=== PATIENT | female | born 1990 ===

== ENCOUNTER 2018-07-22 19:15 | Emergency (ER) | payer OTHER ==
[~2018-07-22] VITALS: Ht 162.6 cm; Wt 48.1 kg
== END 2018-07-22 21:21 | disposition home or self-care (01) ==
LOC: ER 19:15
DX: B34.9 Viral infection, unspecified (principal)

== ENCOUNTER 2019-10-09 15:37 | Emergency (ER) | payer OTHER ==
[~2019-10-09] VITALS: Ht 162.6 cm; Wt 54.4 kg
== END 2019-10-09 18:52 | disposition home or self-care (01) ==
LOC: ER 15:37
DX: S00.03XA Contusion of scalp, initial encounter (principal); M54.2 Cervicalgia; M62.838 Other muscle spasm; W18.09XA Striking against other object with subsequent fall, initial encounter; Y93.89 Activity, other specified; Y92.018 Other place in single-family (private) house as the place of occurrence of the external cause; Y99.8 Other external cause status